=== PATIENT | female | born 1980 | race Asian ===

== ENCOUNTER 2016-06-28 09:27 | Inpatient (IN) | payer OTHER ==
[2016-06-28] VITALS (11 sets, daily range): BP systolic 89–125; BP diastolic 51–75
[~2016-06-28 09:27] MED LIST: ALBUTEROL SULF8.5 GM IH; CHROMAGEN,1 CAPSULE PO; Motrin PO; NAPROSYN500 MG PO; NOHOMEMEDS; PREFERA-OB P1 TABLET PO; PRENATAL TABLE1 EAC3 PO; ZITHROMAX Z-PA250 MG PO
[2016-06-28 10:29] LABS: EOSINOPHIL (%) 2.2 % (0-5); EOSINOPHIL COUNT 0.2 K/uL (0-0.3); HEMATOCRIT 35.5 % (36.0-46.0); IMMATURE GRANULOCYTE (%) 0.6 % (0.0-0.7); IMMATURE GRANULOCYTE COUNT 0.1 K/uL; INSTRUMENT ABS NEUTROPHIL CT 5.8 K/uL; LYMPHOCYTE COUNT 1.2 K/uL (1.0-2.8); MCH 29.8 PG (29.0-34.0); MCHC 33.5 G/DL (30.0-36.0); MCV 88.8 FL (83-99); MEAN PLAT.VOLUME 11.8 uM^3 (9.5-12.4); MONOCYTE (%) 6.8 % (3-12); MONOCYTE COUNT 0.5 K/uL (0-0.8); NEUTROPHIL (%) 74.4 % (45-76); NEUTROPHIL COUNT 5.8 K/uL (1.8-6.4); PLATELET COUNT 173 K/uL (156-360); RBC DIS.WIDTH-CV 14.2 % (11.8-14.6); RBC DIS.WIDTH-SD 45.9 % (39-53); WHITE BLOOD COUNT 7.8 K/uL (4.1-10.2)
[2016-06-29 06:36] LABS: EOSINOPHIL (%) 0.8 % (0-5); EOSINOPHIL COUNT 0.1 K/uL (0-0.3); HEMATOCRIT 27.5 % (36.0-46.0); IMMATURE GRANULOCYTE (%) 0.6 % (0.0-0.7); IMMATURE GRANULOCYTE COUNT 0.1 K/uL; INSTRUMENT ABS NEUTROPHIL CT 11.8 K/uL; LYMPHOCYTE COUNT 1.6 K/uL (1.0-2.8); MCH 29.9 PG (29.0-34.0); MCHC 33.5 G/DL (30.0-36.0); MCV 89.3 FL (83-99); MEAN PLAT.VOLUME 11.8 uM^3 (9.5-12.4); MONOCYTE (%) 7.2 % (3-12); MONOCYTE COUNT 1.1 K/uL (0-0.8); NEUTROPHIL (%) 80.4 % (45-76); NEUTROPHIL COUNT 11.8 K/uL (1.8-6.4); PLATELET COUNT 166 K/uL (156-360); RBC DIS.WIDTH-CV 14.5 % (11.8-14.6); RBC DIS.WIDTH-SD 46.5 % (39-53)
[2016-06-29 06:38] LABS: RED BLOOD COUNT 3.08 M/uL (3.80-5.20); WHITE BLOOD COUNT 14.6 K/uL (4.1-10.2)
[2016-06-29 07:38] VITALS: BP 105/60
[2016-06-29 14:34] VITALS: BP 114/80
[2016-06-29 23:14] VITALS: BP 107/73
[2016-06-30] MEDS ORDERED: IBUPROFEN800 MG PO (10:07)
== END 2016-06-30 15:00 | disposition home or self-care (01) | DRG 775 ==
LOC: LDRP-OP 09:27 → 2WEST 09:28 → LDRP-OP 07-18 16:18
PROVIDERS: Advanced Practice Midwife
PROC: 3E033VJ Introduction of Other Hormone into Peripheral Vein, Percutaneous Approach (ICD-10-PCS; principal; 2016-06-28)
PROC: 10E0XZZ Delivery of Products of Conception, External Approach (ICD-10-PCS; 2016-06-28)
PROC: 0KQM0ZZ Repair Perineum Muscle, Open Approach (ICD-10-PCS; 2016-06-28)
DX: O70.1 Second degree perineal laceration during delivery (principal); O48.0 Post-term pregnancy; O99.02 Anemia complicating childbirth; D62 Acute posthemorrhagic anemia; Z37.0 Single live birth; Z3A.41 41 weeks gestation of pregnancy
CPT/HCPCS: 85025; J0595; J7120